=== PATIENT | female | born 1950 | race Caucasian/White ===

== ENCOUNTER → 2016-09-26 | Outpatient (CLI) | payer OTHER ==
[2016-09-26 13:26] LABS: THYROID STIMULATING HORMONE 4.87 uIu/ml (0.300-4.500)
== END | disposition home or self-care (01) ==
LOC: C.LABMFLN 08:14
PROVIDERS: ATTEND Family Medicine
DX: E03.9 Hypothyroidism, unspecified (principal)

== ENCOUNTER → 2017-03-27 | Outpatient (CLI) | payer OTHER ==
[2017-03-27 14:31] LABS: ALT/SGPT 18 U/L (12-78); BLOOD UREA NITROGEN 11 mg/dl (7-18); BUN/CREATININE RATIO 20.2 (10-20); CALCIUM 8.9 mg/dl (8.5-10.1); CARBON DIOXIDE 28 mmol/L (21-32); CHLORIDE 104 mmol/L (98-107); CHOLESTEROL 213 mg/dl (0-200); CREATININE 0.54 mg/dl (0.60-1.20); GLUCOSE 87 mg/dl (70-99); POTASSIUM 4.2 mmol/L (3.5-5.1); SODIUM 141 mmol/L (136-145); TRIGLYCERIDES 214 mg/dl (0-150); VERY LOW DENSITY LIPOPROT CALC 43 mg/dl
[2017-03-27 14:32] LABS: BASO % 0.4 %; BASO ABS # 0.02 K/uL (0-0.2); COMPLETE YES; EOS % 2.8 %; HEMATOCRIT 41.6 % (37-47); IG% 0.2 %; LYMPH % 21.4 %; LYMPH ABS # 1.15 K/uL (1.2-3.4); MEAN CORPUSCULAR HEMOGLOBIN 29.5 pg (25-34); MEAN CORPUSCULAR HGB CONC 32.5 g/dl (32-36); MEAN PLATELET VOLUME 8.9 fL (7.4-10.4); MONO % 14.5 %; NEUT % 60.7 %; PLATELET COUNT 243 K/uL (130-400); RED BLOOD COUNT 4.57 M/uL (4.2-5.4); WHITE BLOOD COUNT 5.38 K/uL (4.8-10.8)
[2017-03-27 14:40] LABS: ALB/GLOB RATIO 1.1 (0.9-2); ALKALINE PHOSPHATASE 89 U/L (45-117); AST/SGOT 14 U/L (15-37); HDL CHOLESTEROL 43 mg/dl; LDL CHOLESTEROL CALCULATED 127 mg/dl
[2017-03-28 08:08] LABS: ESTIMATED AVERAGE GLUCOSE 114 mg/dl; HA1C FLAG Normal (Normal)
== END | disposition home or self-care (01) ==
LOC: C.LABMFLN 09:21
PROVIDERS: ATTEND Family Medicine
DX: R73.03 Prediabetes (principal); E78.00 Pure hypercholesterolemia, unspecified; E03.9 Hypothyroidism, unspecified; M17.0 Bilateral primary osteoarthritis of knee